=== PATIENT | male | born 1990 | race Caucasian/White ===

== ENCOUNTER 2024-02-14 16:21 | Emergency (ER) | payer OTHER ==
[~2024-02-14] VITALS: Ht 185.4 cm; Wt 77.1 kg
[2024-02-14 16:21] VITALS: BP 156/89; PULSE 90; RESP 18; TEMP 98.4; O2SAT 98
[2024-02-14] MEDS ORDERED: TORADOL ONE (16:53)
[2024-02-14] MEDS: TORADOL IM STA (16:57)
[2024-02-14 18:17] VITALS: BP 133/61; PULSE 85; RESP 18; TEMP 98.4; O2SAT 98
== END 2024-02-14 18:18 | disposition home or self-care (01) ==
LOC: ER 16:21
DX: S10.93XA Contusion of unspecified part of neck, initial encounter (principal); S40.011A Contusion of right shoulder, initial encounter; Z90.89 Acquired absence of other organs; V87.8XXA Person injured in other specified noncollision transport accidents involving motor vehicle (traffic), initial encounter; Y93.89 Activity, other specified; Y92.488 Other paved roadways as the place of occurrence of the external cause; Y99.8 Other external cause status
CPT/HCPCS: 99285; 72125; 96372; 73030; J1885